=== PATIENT | male | born 1995 | race American Indian/Alaskan Native ===

== ENCOUNTER 2020-01-23 12:21 | Emergency (ER) | payer SELFPAY ==
[2020-01-23 13:05] VITALS: BP 120/69
--- NOTE | 2020-01-23 13:07 | Event Note ---
ED Screening Note Date of service: 01/23/20 Time: 13:06 ED Screening Note: Patient complains of lower abdominal pain today Denies diarrhea, nausea, vomiting, or urinary symptoms This initial assessment/diagnostic orders/clinical plan/treatment(s) is/are subject to change based on patients health status, clinical progression and re- assessment by fellow clinical providers in the ED. Further treatment and workup at subsequent clinical providers discretion. Patient/guardian urged not to elope from the ED as their condition may be serious if not clinically assessed and managed. Initial orders include: Lab
[2020-01-23 13:45] LABS: Basophils % (Auto) 0.7 % (0.0-1.8); Eosinophils # (Auto) 0.1 K/mm3 (0.0-0.4); Hematocrit 42.9 % (35.5-45.6); Hemoglobin 14.6 gm/dl (11.8-15.2); Lymphocytes # (Auto) 1.4 K/mm3 (1.2-5.4); Lymphocytes % (Auto) 32.6 % (13.4-35.0); Mean Corpuscular HGB Conc 34 % (32-34); Mean Corpuscular Volume 92 fl (84-94); Monocytes # (Auto) 0.5 K/mm3 (0.0-0.8); Monocytes % (Auto) 11.1 % (0.0-7.3); Platelet Count 245 K/mm3 (140-440); Red Blood Count 4.67 M/mm3 (3.65-5.03)
[2020-01-23 14:00] LABS: Alanine Aminotransferase 12 units/L (7-56); Albumin 4.8 g/dL (3.9-5); BUN/Creatinine Ratio 10; Blood Urea Nitrogen 10 mg/dL (9-20); Calcium 9.5 mg/dL (8.4-10.2); Hemolysis Index 9
[2020-01-23 14:09] LABS: Mucus,Urine FEW /HPF
[2020-01-23 14:57] LABS: Bilirubin,Urine TNR (Negative); Color,Urine Orange (Yellow)
[2020-01-23 15:01] LABS: Blood,Urine TNR (Negative); PH,Urine TNR (5.0-7.0); Protein,Urine TNR mg/dL (Negative)
[2020-01-23 15:02] LABS: Ictotest,Urine TNR (Negative); Urobilinogen,Urine TNR mg/dL (<2.0); WBC,Urine TNR /HPF (0.0-6.0)
== END 2020-01-23 13:06 | disposition left against medical advice (07) ==
LOC: ED 12:21
DX: R10.30 Lower abdominal pain, unspecified (principal); Z53.21 Procedure and treatment not carried out due to patient leaving prior to being seen by health care provider
CPT/HCPCS: 36415; 80053; 81001; 83690; 85025

== ENCOUNTER 2021-05-03 08:18 | Emergency (ER) | payer SELFPAY ==
[2021-05-03 08:41] VITALS: BP 129/79
--- NOTE | 2021-05-03 09:09 | Emergency Department Report ---
Chief Complaint: Urogenital-Male Stated Complaint: STD EXPOSURE Time Seen by Provider: 05/03/21 08:57 - HPI History of Present Illness: 25-year-old -[place] male presents to the emergency room complaining of right wrist pain that is mild for over a month. Patient is currently playing video game on his phone. He denies any trauma. He reports that ibuprofen does help with his pain. He states why is here he want to get tested for herpes. Denies any lesions no penile discharge. - Exam Vital Signs: Vital Signs 05/03/21 08:40 Temperature 98.3 F Pulse Rate 89 Respiratory 20 Rate Blood Pressure 129/79 [Right] O2 Sat by Pulse 100 Oximetry MSE screening note: Focused history and physical exam performed. Due to findings the following was ordered: 25-year-old -[place] male presents to the emergency room complaining of right wrist pain that is mild for over a month. Patient is currently playing video game on his phone. He denies any trauma. He reports that ibuprofen does help with his pain. He states why is here he want to get tested for herpes. Denies any lesions no penile discharge. ED Medical Decision Making - Medical Decision Making 25-year-old -[place] male presents to the emergency room complaining of right wrist pain that is mild for over a month. Patient is currently playing video game on his phone. He denies any trauma. He reports that ibuprofen does help with his pain. He states why is here he want to get tested for herpes. Denies any lesions no penile discharge. Discussed with patient needs to follow-up at the [facility] for full STD evaluation as we do not check for herpes here. Discussed with patient continue with ibuprofen most likely has overuse of his wrist as he is plays constantly on his phone. Discussed the patient to follow-up at her primary care provider or orthopedic provider. ED Disposition for MSE Clinical Impression: Wrist pain, right, Concern about STD in male without diagnosis Disposition: 01 HOME / SELF CARE / HOMELESS Is pt being admited?: No Does the pt Need Aspirin: No Condition: Stable Instructions: Wrist Pain, Adult, [id number] Additional Instructions: Recommend ibuprofen and Aleve. Try to avoid playing games on her phone as this is most likely overuse of using her right wrist. Follow-up at the health department for full STD evaluation. Referrals: RADHA ARIZA MD [Staff Physician] - 3-5 Days [facility] [Outside] - 3-5 Days Time of Disposition: 09:01
== END 2021-05-03 09:30 | disposition home or self-care (01) ==
LOC: ED 08:18
DX: M25.531 Pain in right wrist (principal); Z20.2 Contact with and (suspected) exposure to infections with a predominantly sexual mode of transmission
CPT/HCPCS: 99282

== ENCOUNTER 2021-10-03 21:31 | Emergency (ER) | payer SELFPAY | END 2021-10-03 22:47 | disposition left against medical advice (07) | LOC: ED 21:31 | DX: M79.604 Pain in right leg (principal); M79.601 Pain in right arm; Z53.21 Procedure and treatment not carried out due to patient leaving prior to being seen by health care provider ==